=== PATIENT | male | born 1980 ===

== ENCOUNTER 2018-03-22 00:54 | Emergency (ER) | payer SELFPAY ==
[2018-03-22 01:20] VITALS: BMI 39.6
[2018-03-22 01:25] VITALS: RESP 16; TEMP 98.6; O2SAT 98
--- NOTE | 2018-03-22 01:49 | ED PDOC ---
Lower Extremity Pain/Injury Time Seen by Provider: 03/22/18 01:29 Chief Complaint (Nursing): Lower Extremity Problem/Injury Chief Complaint (Provider): Right Knee Pain History Per: Patient Onset/Duration Of Symptoms: Days (x3) Current Symptoms Are (Timing): Still Present Additional Complaint(s): 37 year old male presents to ED complaining of right knee pain with onset of 3 days. 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 Patient indicates pain worsens with weight bearing and ambulation and denies falls/trauma or prior knee injury. No knee swelling, SOB , cough, or calf tenderness reported. Patient has no other complaints at this time PCP: none provided Past Medical History Reviewed: Historical Data, Nursing Documentation, Vital Signs Vital Signs: Last Vital Signs Temp 98.6 F 03/22/18 01:20 Pulse 82 03/22/18 01:20 Resp 16 03/22/18 01:20 BP 157/90 H 03/22/18 01:20 Pulse Ox 98 03/22/18 01:20 - Medical History PMH: HTN - Surgical History Surgical History: No Surg Hx - Family History Family History: States: Unknown Family Hx - Social History Current smoker - smoking cessation education provided: No Alcohol: Social Drugs: Denies - Home Medications Home Medications: Ambulatory Orders Medication Instructions Recorded Polyethylene Glycol/Polyvinyl 2 drop OS Q6 PRN #1 bottle 04/24/15 [Artificial Tears] Prednisone [Deltasone] 60 mg PO DAILY #22 tab 04/24/15 Valacyclovir HCl [Valacyclovir] 1 gm PO TID #21 tab 04/24/15 oxyCODONE/Acetaminophen [Percocet 1 ea PO Q6 PRN #12 tab 10/31/16 5/325 mg Tab] Ibuprofen [Motrin Tab] 800 mg PO Q8 PRN #24 tab 03/22/18 - Allergies Allergies/Adverse Reactions: Allergies Allergy/AdvReac Type Severity Reaction Status Date / Time No Known Allergies Allergy Verified 03/22/18 01:19 Review of Systems ROS Statement: Except As Marked, All Systems Reviewed And Found Negative Musculoskeletal: Positive for: Other (Right knee pain) Physical Exam - Reviewed Nursing Documentation Reviewed: Yes Vital Signs Reviewed: Yes - Physical Exam Comments: GENERAL APPEARANCE: Patient is awake, alert, oriented x 3, in no acute distress. Ambulatory in ED with a limp. SKIN: Warm, dry; (-) cyanosis. CHEST AND RESPIRATORY: (-) rales, (-) rhonchi, (-) wheezes; breath sounds equal bilaterally. Speaking in full sentences, respirations even and nonlabored. HEART AND CARDIOVASCULAR: (-) irregularity; (-) murmur, (-) gallop. NECK: Supple, FROM ENT: Mucus membranes moist KNEE: Full ROM (+) Tenderness of medial aspect of proximal right tibia, (-) effusion, (-) ecchymosis (-) erythema. (-) warmth (-) skin break. (-) instability on valgus or varus stress (-) anterior and posterior drawer sign (- ) calf tenderness (-) palpable cord. Remainder of extremity nontender with FROM. NEURO AND PSYCH: Mental status as above. - ECG O2 Sat by Pulse Oximetry: 98 (RA) Pulse Ox Interpretation: Normal Medical Decision Making Medical Decision Making: Initial Impression: Acute knee pain/sprain Initial Plan: X-ray Right knee Toradol 30mg IM Re-evaluation 024 XR reviewed: (-) fracture (-) dislocation (+) DJD as read by Lydia DOW Patient notified a Radiologist will review the ED reading if any change in treatment is needed we will contact him [phone] On re-evaluation, patient reports improvement of symptoms. On exam, patient remains AAOx3, in no acute distress. Lungs clear to auscultation, cardiac RRR, repeat neuro exam shows no focal findings. Repeat HR: 70 Repeat BP: 144/77 VSS, stable for discharge. RICE encouraged. Continue using personal knee brace as needed. Lab/Diagnostic results d/w the patient in great detail. Diagnosis of acute knee pain/sprain d/w the patient. Based on history, exam and diagnostic results, plan will be for outpatient follow up with ortho/clinic. Patient instructed to follow-up with pmd / referral provided / the clinic in 1- 2 days without fail. Advised to take medication as prescribed. Return to the emergency room at any time for any new or worsening symptoms. Patient states he fully agrees with and understands discharge instructions. States that he agrees with the plan and disposition. Verbalized and repeated discharge instructions and plan. I have given the patient opportunity to ask any additional questions. Scribe Attestation: Documented by Lorne Erickson acting as a scribe for Kacie GARCÍA. Provider Scribe Attestation: All medical record entries made by the Scribe were at my direction and personally dictated by me. I have reviewed the chart and agree that the record accurately reflects my personal performance of the history, physical exam, medical decision making, and the department course for this patient. I have also personally directed, reviewed, and agree with the discharge instructions and disposition. Disposition - Clinical Impression Clinical Impression: Knee pain, acute, Knee sprain - Patient ED Disposition Is Patient to be Admitted: No Counseled Patient/Family Regarding: Studies Performed, Diagnosis, Need For Followup, Rx Given - Disposition Referrals: Keren Diop MD [Staff Provider] - [facility] [Outside] Disposition: Routine/Home Disposition Time: 02:49 Condition: STABLE Additional Instructions: FOLLOW UP WITH CLINIC/ORTHO DIRECTED. RETURN TO ED WITH ANY NEW OR WORSENING SYMPTOMS. REST ICE COMPRESS ELEVATE Prescriptions: Ibuprofen [Motrin Tab] 800 mg PO Q8 PRN #24 tab PRN Reason: Pain, Moderate (4-7) Instructions: Knee Sprain (DC), Knee Pain (DC) Forms: [employer] (Cypriot) Print Language: SURINAMESE - POA Present On Arrival: None
[2018-03-22 03:05] VITALS: BP 144/77; PULSE 70
--- NOTE | 2018-03-22 09:07 | RAD ---
PROCEDURE: Right Knee Radiographs. HISTORY: joint pain COMPARISON: None. FINDINGS: BONES: No acute fracture. JOINTS: Tricompartmental narrowing, worst in the medial tibiofemoral compartment, with mild degenerative spurring. JOINT EFFUSION: None. OTHER FINDINGS: None. IMPRESSION: No demonstrated fracture or dislocation. Degenerative changes, worst in the medial tibiofemoral compartment.
== END 2018-03-22 03:04 | disposition home or self-care (01) ==
LOC: H.ER 00:54
DX: S83.91XA Sprain of unspecified site of right knee, initial encounter (principal); Y92.89 Other specified places as the place of occurrence of the external cause; I10 Essential (primary) hypertension
CPT/HCPCS: 73562; 96372; 99283; J1885

== ENCOUNTER 2018-10-17 17:10 | Emergency (ER) | payer OTHER ==
[2018-10-17 17:10] VITALS: BMI 39.6
[2018-10-17 17:15] VITALS: BP 137/96; PULSE 73; RESP 18; TEMP 98.5; O2SAT 99
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
== END 2018-10-17 20:14 | disposition home or self-care (01) ==
LOC: H.ER 17:10
DX: S93.401A Sprain of unspecified ligament of right ankle, initial encounter (principal); Y93.55 Activity, bike riding; Y92.89 Other specified places as the place of occurrence of the external cause; I10 Essential (primary) hypertension
CPT/HCPCS: 73610; 96372; 99282; J1885